=== PATIENT | female | born 1950 | race Caucasian/White ===

== ENCOUNTER 2016-08-16 07:36 | Outpatient (CLI) | payer OTHER ==
[2016-08-16] VITALS (7 sets, daily range): BP systolic 100–130; BP diastolic 48–77; PULSE 53–69; TEMP 98.2
[~2016-08-16] VITALS: Ht 162.6 cm; Wt 66.4 kg
[~2016-08-16 07:36] MED LIST: ASPIRIN 32325 MG/TAB PO; CALCIUM 600MG+D1 TAB PO; TOPROL XL 25MG25 MG PO; VITAMIN C500 MG PO
[2016-08-16 11:12] LABS: CEREBROSPINAL TUBE #4; CSF APPEARANCE CLEAR; CSF COLOR COLORLESS
== END 2016-08-16 10:58 | disposition home or self-care (01) ==
LOC: COL.RAD 07:36
PROVIDERS: Psychiatry & Neurology Neurology
DX: R93.0 Abnormal findings on diagnostic imaging of skull and head, not elsewhere classified (principal)